=== PATIENT | female | born 1950 | race Caucasian/White ===

== ENCOUNTER 2025-10-26 13:36 | Emergency (ER) | payer MEDICARE, OTHER, SELFPAY ==
[2025-10-26 13:37] VITALS: BP 185/97
[2025-10-26 13:53] VITALS: BP 161/75
[2025-10-26 13:57] VITALS: BMI 19.3
[2025-10-26 14:39] LABS: Hematocrit 39.7 % (37.0-47.0); Hemoglobin 13.2 g/dL (12.0-16.0); Mean Corp Hgb Conc. 33.2 g/dL (33.0-37.0); Mean Corpuscular Volume 89.0 fL (81.0-99.0); Nucleated Red Blood Cells % 0 %; Platelet Count 194 10^3/uL (130-400); Red Cell Dist. Width 12.2 % (11.5-14.5)
[2025-10-26 15:00] VITALS: BP 167/75
[2025-10-26 15:10] LABS: ALT (SGPT) 17 U/L (0-35); AST (SGOT) 27 U/L (14-36); Albumin 4.2 g/dl (3.5-5.0); Alkaline Phosphatase 50 U/L (38-126); Blood Urea Nitrogen 20 mg/dl (7-17); Calcium 9.2 mg/dl (8.4-10.2); Carbon Dioxide 25 mmol/L (22-30); Chloride 103 mmol/L (98-107); Estimated Creatinine Clearance 62 ml/min; Glucose 125 mg/dl (70-99); Magnesium 1.9 mg/dl (1.6-2.3); Potassium 4.6 mmol/L (3.5-5.1); Sodium 134 mmol/L (135-145); Total Protein 7.1 g/dl (6.3-8.2); eGFR > 60.00
--- NOTE | 2025-10-26 15:10 | ED.GENMED ---
History of Present Illness
General
Chief Complaint: Chest Problem
Source: patient and family
Exam Limitations: none
Time Seen by Provider: 10/26/25 13:49
Nursing documentation reviewed up to this point in time: agreed with
History of Present Illness
History of Present Illness:
75-year-old female presents with chest pressure--- approximately a week ago she developed shortness of breath after working out on the elliptical which is new for her, subsequently had some pain in her upper chest felt like she was doing a plank
exercise, saw Dr. Cotto, cardiology, scheduled for echocardiogram apparently blood pressure was elevated a bit at that time today she raised her grandchild above her head developed some chest pain fatigue lasted about 30 minutes to an hour, no
nausea vomiting or diaphoresis she feels well now she has no leg edema no cough no fevers does have a family history of A-fib, no family history of CAD
Phy Exam
Physical Exam
Physical Exam:
Physical Exam
General: no apparent distress, not acutely ill
Neck: supple.
Heart: s1/s2 regular rate and rhythm, no murmur. equal radial pulses.
Lungs: no acute respiratory distress. clear bilaterally
Abdomen: Nontender
Neuro: alert and oriented. no focal neurological deficits
Skin: no rash
Psychiatric: well kept. interactive and cooperative
Extremities: no edema. no calf tenderness.
Course
Orders/Labs/Results
Orders:
Orders
10/26/25 13:44
ECG [Electrocardiogram (*1)] Urgent
Reason for Study: Shortness of Breath
10/26/25 13:45
EKG- Treatment ONCE
10/26/25 14:13
Electrocardiogram (*1) Stat
Reason for Study: Other
Other Reason for Exam: chest pain
EKG- Treatment ONCE
CR Chest - 2 Views Urgent
Comment:
Reason For Exam: sob
10/26/25 14:30
Complete Blood Count/With Diff Urgent
Comprehensive Metabolic Panel Urgent
Magnesium Urgent
NT-proBNP Urgent
Troponin I Urgent
10/26/25 15:25
EKG- Treatment ONCE
10/26/25 17:48
Troponin I Urgent
Abnormal Lab Results
10/26/25
14:30
MPV 11.5 H fL
(7.4-10.4)
Lymphocytes % 16.8 L %
(20.5-51.1)
Sodium 134 L mmol/L
(135-145)
BUN 20 H mg/dl
(7-17)
Glucose 125 H mg/dl
(70-99)
10/26/25 14:30
10/26/25 14:30
Vital Signs
Initial and Last Documented VS:
Initial Vital Signs
Temp Pulse Resp BP Pulse Ox
97.7 F 104 18 185/97 98
10/26/25 13:37 10/26/25 13:37 10/26/25 13:37 10/26/25 13:37 10/26/25 13:37
Last Documented Vital Signs
Temp Pulse Resp BP Pulse Ox
97.7 F 64 17 115/58 98
10/26/25 13:37 10/26/25 18:45 10/26/25 18:45 10/26/25 18:00 10/26/25 15:12
MDM/Problems Addressed
Differential Diagnosis Includes:
ACS, musculoskeletal pain, angina, heart failure doubt pneumothorax or PE
MDM/Problems Addressed:
Chest pain shortness of
Chronic conditions affecting care: HTN
Acute Exacerbation and/or Progression of Chronic Illness: HTN
*Pulse Oximetry
SaO2: 98
Oxygen Mode of Delivery: Room air
Patient hypoxic: no
*EKG
Interpreted by ED Provider?: Yes
Interpretation: normal
Comparison EKG: no comparison EKG present
Heart Rate: 78
Rate: normal
Rhythm: sinus
Ischemia: non-specific ST changes
*Railway Signal Operator Interpretation
Rate: normal
Interpretation: normal
Heart Rate: 78
Rhythm: sinus
*Critical Care Note
Total Time (30-74mins, 75-104mins- exclusive of procedures): Not Applicable
ED Attending Note
-
Portions of this chart may have been created with voice recognition software.� Occasional wrong word or��sound alike� substitutions may have occurred due to the inherent limitations of voice recognition software.
Discharge Plan
Departure
Patient Disposition: Home (Routine Discharge)
Date of Disposition: 10/26/25
Time of Disposition: 18:44
Patient with high blood pressure during this ER visit?: No
Discharge Problem:
chest pain
Instructions: Chest Pain (DC)
Prescriptions:
No Action
latanoprost 0.005 % Drops
1 drp OPHTHALMIC (EYE) QPM
lisinopril 2.5 mg Tablet
2.5 mg PO DAILY
Referrals:
Mamta Cavazos MD [Family Provider]
Interventions
Interventions:
*General Assessment Last Done: 10/26/25 13:57
*Neglect/Abuse Screening Last Done: 10/26/25 13:37
*ED COVID-19 Vaccine History Last Done: 10/26/25 13:37
*ED Influenza Vaccine History Last Done: 10/26/25 13:37
[facility] Fall Risk Assessment Tool Last Done: 10/26/25 13:57
*Risk Screen - Suicide (C-SSRS) Last Done: 10/26/25 13:37
*Nursing Disposition Last Done: 10/26/25 19:39
ED- Cardiac Assessment Last Done: 10/26/25 13:58
ED- Pulmonary Assessment Last Done: 10/26/25 13:58
Discharge Date and Time
Discharge Date/Time: 10/26/25 18:55
Print Language: ARABIC
[2025-10-26 15:22] LABS: Troponin I 0.016 ng/ml
[2025-10-26 16:51] VITALS: BP 105/64
[2025-10-26 17:00] VITALS: BP 115/52
[2025-10-26 18:00] VITALS: BP 115/58
[2025-10-26 18:28] LABS: Troponin I < 0.012 ng/ml
== END 2025-10-26 18:55 | disposition home or self-care (01) ==
LOC: EMR 13:36
PROVIDERS: EMERGENCY PHYSICIAN Emergency Medicine; FAMILY PHYSICIAN Family Medicine
DX: R07.89 Other chest pain (principal); I10 Essential (primary) hypertension
CPT/HCPCS: 99285; 71046; 80053; 83735; 83880; 84484; 85025; 93005